=== PATIENT | male | born 1955 | race Caucasian/White ===

== ENCOUNTER 2018-12-26 12:24 | Emergency (ER) | payer SELFPAY ==
[~2018-12-26] VITALS: Ht 165.1 cm; Wt 86.8 kg
[~2018-12-26 12:24] MED LIST: IBUP800T48 PO
[2018-12-26 12:28] VITALS: Ht 165.1 cm; Wt 86.8 kg
[2018-12-26 12:57] VITALS: BP 145/100; PULSE 98; RESP 18
[2018-12-26] MEDS ORDERED: KETOROLAC 15 MG INJ IV STA (13:04)
== END 2018-12-26 15:08 | disposition home or self-care (01) ==
LOC: E/R 12:24
DX: S39.011A Strain of muscle, fascia and tendon of abdomen, initial encounter (principal); X58.XXXA Exposure to other specified factors, initial encounter; Y92.9 Unspecified place or not applicable; Z85.038 Personal history of other malignant neoplasm of large intestine
CPT/HCPCS: 36415; 74176; 80053; 83690; 85025; 96374; 99285; J1885